=== PATIENT | female | born 1985 | race Caucasian/White ===

== ENCOUNTER 2022-12-06 14:04 | Observation (INO) | payer OTHER ==
[2022-12-06] MEDS ORDERED: LORazepam 2 MG TABLET PO ONE ×2 (14:39→18:02)
[2022-12-06] MEDS ORDERED: LORazepam 0.5 MG TABLET ONE ×2 (14:41→18:13)
[2022-12-06] MEDS ORDERED: SODIUM CHLORIDE 0.9% 1000 ML INFUS.BAG IV ONE (14:42)
[2022-12-06 15:29] LABS: HCG,QUALITATIVE URINE Negative
[2022-12-06 15:34] LABS: HEMATOCRIT 43.3 % (32.4-45.2); HEMOGLOBIN 14.6 G/dL (10.7-15.3); MCH 30.9 pg (25.7-33.7); MCHC 33.7 g/dl (32.0-36.0); MEAN CELL VOLUME 91.8 fl (80-96); MEAN PLT VOLUME 9.5 fl (7.5-11.1); PLATELET COUNT 226.3 10^3/uL (134-434); RBC 4.72 10^6/uL (3.60-5.2); RDW 13.4 % (11.6-15.6); WHITE BLOOD COUNT 4.7 10^3/uL (4.0-10.8)
[2022-12-06 15:40] LABS: INR 0.99 (0.83-1.09); PROTHROMBIN TIME (PATIENT) 11.5 SEC (9.7-13.0)
[2022-12-06 15:41] LABS: ALBUMIN 4.2 g/dl (3.4-5.0); BILIRUBIN,TOTAL 0.6 mg/dl (0.2-1); CALCIUM 9.5 mg/dl (8.5-10.1); CREATININE 0.6 mg/dl (0.6-1.3); POTASSIUM 4.1 mmol/L (3.5-5.1); SGOT/AST 21.2 U/L (15-37); SGPT/ALT 17.2 U/L (7-52); TOT PROT 7.1 g/dl (6.4-8.2)
[2022-12-06 15:43] LABS: ACTIVATED PTT 28.9 SECONDS (25.2-36.5)
[2022-12-06 16:37] LABS: PLATELET ESTIMATE ADEQUATE
[2022-12-06 19:00] VITALS: RESP 16
[2022-12-06 21:07] VITALS: BMI 21.6
[2022-12-06] MEDS ORDERED: LORazepam 1 MG TABLET PO PRN (21:59)
[2022-12-06] MEDS ORDERED: SODIUM CHLORIDE 1,000 ML IV SCH (22:00)
[2022-12-07 07:08] LABS: HEMATOCRIT 38.7 % (32.4-45.2); HEMOGLOBIN 12.9 GM/dL (10.7-15.3); MCH 30.3 pg (25.7-33.7); MCHC 33.2 g/dl (32.0-36.0); MEAN CELL VOLUME 91.3 fl (80-96); MEAN PLT VOLUME 9.4 fl (7.5-11.1); PLATELET COUNT 189 10^3/uL (134-434); RBC 4.24 M/mm3 (3.60-5.2); RDW 13.6 % (11.6-15.6); WHITE BLOOD COUNT 3.2 K/mm3 (4.0-10.0)
[2022-12-07 07:34] LABS: POTASSIUM 5.1 mmol/L (3.5-5.1)
[2022-12-07 07:40] LABS: BLOOD UREA NITROGEN 7.6 mg/dL (7-18); CALCIUM 8.6 mg/dL (8.5-10.1); MAGNESIUM 2.3 mg/dL (1.8-2.4)
[2022-12-07 07:43] LABS: CREATININE 0.6 mg/dL (0.55-1.3)
[2022-12-07 07:44] LABS: BILIRUBIN,TOTAL 0.5 mg/dL (0.2-1); TOT PROT 6.2 g/dl (6.4-8.2)
[2022-12-07] MEDS ORDERED: ENOXAPARIN NA (PORCINE) 40 MG/0.4 ML DISP.SYRIN SQ SCH (10:00)
[2022-12-07 11:14] VITALS: BP 109/57; PULSE 62; TEMP 98.8
== END 2022-12-07 13:11 | disposition home or self-care (01) ==
LOC: FER 14:04 → INTOOBSV 20:35 → J4S 20:35
PROVIDERS: ADMIT Internal Medicine; ATTEND Internal Medicine
PROC: 3E0337Z Introduction of Electrolytic and Water Balance Substance into Peripheral Vein, Percutaneous Approach (ICD-10-PCS; principal; 2022-12-06)
DX: T43.225A Adverse effect of selective serotonin reuptake inhibitors, initial encounter (principal); G25.79 Other drug induced movement disorders; F41.0 Panic disorder [episodic paroxysmal anxiety]; Z88.0 Allergy status to penicillin
CPT/HCPCS: 36415; 71045-TC-FY; 80053; 81003; 81015; 82550; 83735; 83874; 84100; 84443; 84703; 85027; 85610; 85730; 93005; 99285-25; G0378